=== PATIENT | female | born 1965 | race Caucasian/White ===

== ENCOUNTER 2016-12-27 22:15 | Emergency (ER) | payer BC, OTHER ==
[~2016-12-27] VITALS: Ht 167.6 cm; Wt 73.4 kg
[2016-12-27 22:25] VITALS: TEMP 36.8; Ht 167.6 cm; Wt 73.4 kg
--- NOTE | 2016-12-27 22:47 | EMERGENCY ROOM VISIT NOTE ---
History Report prepared by Lalita: Ac Morocho Under the Supervision of: Dr. Liam Daigle D.O. First contact with patient: 22:31 Chief Complaint: UNABLE TO VOID Stated Complaint: UNABLE TO URINATE Nursing Triage Summary: Patient states "I am unable to urinate. I have a vaginal bladder prolapse since today. Last time, I urinated was at 10 am this morning." History of Present Illness The patient is a 51 year old female who presents to the Emergency Room with inability to void, that began this morning. The patient has not urinated since early this morning, roughly 12 hours ago. She states that she has been diagnosed with a vaginal prolapse as is currently being evaluated for possible treatments. She is not complaining of any other symptoms at this time. She denies lower abdominal pain, back pain, or flank pain. 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 A total of ten systems were reviewed and were otherwise negative. Past Medical & Surgical Patient reports bowel obstruction, vaginal prolapse, and migraines Family History Pt reports family history of Hypertension and Cancer. Social History Smoking Status: Never Smoker Drug Use: none Marital Status: Housing Status: lives with family Occupation Status: employed Current/Historical Medications Scheduled Topiramate (Topamax), 50 MG PO HS Scheduled PRN Naratriptan Hcl (Amerge), 2.5 MG PO UD PRN for Migraine Allergies Coded Allergies: No Known Allergies (Unverified , 12/27/16) Physical Exam Vital Signs Date Time Temp Pulse Resp B/P (MAP) Pulse Ox O2 Delivery O2 Flow Rate FiO2 12/27/16 22:25 36.8 74 18 135/77 96 Room Air Physical Exam GENERAL: Awake, alert, well-appearing, in no distress HENT: Normocephalic, atraumatic. Oropharynx unremarkable. EYES: Normal conjunctiva. Sclera non-icteric. NECK: Supple. No nuchal rigidity. FROM. No JVD. RESPIRATORY: Clear to auscultation. CARDIAC: Regular rate, normal rhythm. Extremities warm and well perfused. Pulses equal. ABDOMEN: Soft, non-distended. No tenderness to palpation. No rebound or guarding. No masses. RECTAL: Deferred. MUSCULOSKELETAL: Chest examination reveals no tenderness. The back is symmetrical on inspection without obvious abnormality. There is no CVA tenderness to palpation. No joint edema. LOWER EXTREMITIES: Calves are equal size bilaterally and non-tender. No edema. No discoloration. NEURO: Normal sensorium. No sensory or motor deficits noted. SKIN: No rash or jaundice noted. : No significant bladder or vaginal prolapse. Medical Decision & Procedures Laboratory Results Test 12/27/16 23:15 Urine Color YELLOW Urine Appearance CLEAR (CLEAR) Urine pH 6.0 (4.5-7.5) Urine Specific [place] 1.017 (1.000-1.030) Urine Protein NEG (NEG) Urine Glucose (UA) NEG (NEG) Urine Ketones NEG (NEG) Urine Occult Blood NEG (NEG) Urine Nitrite NEG (NEG) Urine Bilirubin NEG (NEG) Urine Urobilinogen NEG (NEG) Urine Leukocyte Esterase NEG (NEG) Laboratory results reviewed by me ED Course 2238: The patient was evaluated in room B8. A complete history and physical exam was performed. 2303: I checked on the patient at this time. She was doing well. 2334: I reevaluated the patient. Discussed results and discharge instructions: she verbalized understanding and agreement. The patient is ready for discharge. Feels better, 750ml out, no infection Medical Decision Differential Diagnosis include; urinary retention, UTI, bladder prolapse. Medication Reconcilliation Current Medication List: was personally reviewed by me Blood Pressure Screening Patient's blood pressure: Elevated blood pressure Blood pressure disposition: Elevated BP felt to be situational Impression Primary Impression: Urinary retention Scribe Attestation The scribe's documentation has been prepared under my direction and personally reviewed by me in its entirety. I confirm that the note above accurately reflects all work, treatment, procedures, and medical decision making performed by me. Departure Information Dispostion Home / Self-Care Referrals Kesha Soto D.O. (PCP) Patient Instructions ED Retention Urinary Female, My [facility]
[2016-12-27] MEDS ORDERED: TOPI25TA10 PO (22:56)
[2016-12-27] MEDS ORDERED: NARA1TAB14 PO (22:56)
[2016-12-27 23:23] LABS: URINE APPEARANCE CLEAR (CLEAR); URINE BILIRUBIN NEG (NEG); URINE COLOR YELLOW; URINE NITRITE NEG (NEG); URINE SPECIFIC GRAVITY 1.017 (1.000-1.030); UROBILINOGEN NEG (NEG)
[2016-12-27 23:24] LABS: MANUAL MICROSCOPIC REQUIRED? NO; REVIEW REQ? NO
[2016-12-27 23:59] VITALS: BP 131/77; PULSE 65; O2SAT 98
== END 2016-12-28 | disposition home or self-care (01) ==
LOC: C.EDB 22:15
DX: R33.9 Retention of urine, unspecified (principal); Z82.49 Family history of ischemic heart disease and other diseases of the circulatory system; Z80.9 Family history of malignant neoplasm, unspecified; Z79.899 Other long term (current) drug therapy

== ENCOUNTER 2017-08-17 09:24 | Emergency (ER) | payer BC, OTHER ==
[~2017-08-17] VITALS: Ht 168.9 cm; Wt 75.3 kg
[~2017-08-17 09:24] MED LIST: NARA1TAB14 PO; TOPI25TA10 PO
[2017-08-17 09:30] VITALS: TEMP 36.8; Ht 168.9 cm; Wt 75.3 kg
[2017-08-17] MEDS ORDERED: MULT-920 (10:47)
[2017-08-17] MEDS ORDERED: RXC5 PO (10:47)
[2017-08-17] MEDS ORDERED: BISA-16 PO (10:47)
[2017-08-17] MEDS ORDERED: NAPR1TAB9 PO (10:47)
[2017-08-17 12:08] LABS: BASO % 0.3 %; BASO ABS # 0.03 K/uL (0-0.2); EOS % 3.3 %; HEMATOCRIT 35.4 % (37-47); IG# 0.04 K/uL (0.00-0.02); LYMPH % 27.6 %; LYMPH ABS # 2.47 K/uL (1.2-3.4); MEAN CELL VOLUME 87.2 fL (80-100); MEAN CORPUSCULAR HEMOGLOBIN 29.6 pg (25-34); MEAN CORPUSCULAR HGB CONC 33.9 g/dl (32-36); MEAN PLATELET VOLUME 10.8 fL (7.4-10.4); MONO % 6.7 %; NEUT % 61.7 %; NEUT ABS # 5.52 K/uL (1.4-6.5); PLATELET COUNT 354 K/uL (130-400); RED CELL DISTRIBUTION WIDTH SD 44.6 fL (36.4-46.3); WHITE BLOOD COUNT 8.96 K/uL (4.8-10.8)
[2017-08-17 12:24] LABS: CALCIUM 8.6 mg/dl (8.5-10.1); CREATININE 0.54 mg/dl (0.60-1.20)
[2017-08-17] MEDS ORDERED: CEFD300C2 PO (13:00)
--- NOTE | 2017-08-17 13:01 | EMERGENCY ROOM VISIT NOTE ---
History First contact with patient: 09:35 Chief Complaint: URINARY SYMPTOMS Stated Complaint: DISCOMFORT WITH URINATION Nursing Triage Summary: pt reports hysterectomy on 08/09 had cath removed 1 day ago and passed the urine challenge. pt reports feeling pressure around 0300 this AM took oxycodone and aleve with no relief . pt feels like not emptying bladder History of Present Illness The patient is a 51 year old female who presents to the Emergency Room with complaints of urinary retention and pelvic pressure. The patient recently had surgery completed at [facility] on August 09. She had a total vaginal hysterectomy, anterior colporrhaphy, perineorrhaphy, uterosacral ligament vault suspension performed by Dr. Oliver Brumfield. Patient states she initially failed her bladder challenge, and discharged home with a San catheter. She returned to [place] yesterday, where she did pass a bladder challenge, and the catheter was DC'd. The patient states she had been on Bactrim with the San catheter, however she had allergic reaction to the medication and this medication was discontinued on Wednesday. She states she felt well overnight, but at approximately 3 AM, she awoke with severe pain and incomplete emptying of her bladder. She states she is passing urine, but it is very weak stream. She states she is having to go very frequently, and only goes small amounts. She reports significant pressure sensation in her bladder. She denies any urethral or external pain with the passage of urine. She denies any dysuria or hematuria. She denies any recent fever. She states she is concerned that she may be retaining urine, and her surgeon recommended she come to the emergency department for possible replacement of a San catheter. The patient denies any specific abdominal pain or recent illness. She denies any diarrhea or constipation. Review of Systems A complete 10 point review of systems was reviewed with the patient with pertinent positives and negatives as per history of present illness. All else were negative. Past Medical/Surgical History Migraines Social History Smoking Status: Never Smoker Drug Use: none Marital Status: Housing Status: lives with family Occupation Status: employed Current/Historical Medications Scheduled Bisacodyl (Dulcolax), 2 TAB PO UD Cefdinir (Omnicef), 1 CAP PO BID Topiramate (Topamax), 50 MG PO DAILY Scheduled PRN Naratriptan Hcl (Amerge), 2.5 MG PO UD PRN for Migraine Miscellaneous Medications Multiple Vitamins W/ Minerals (Airborne) Naproxen (Aleve), 220 MG PO Oxycodone HCl (Oxycodone HCl), 1 TAB PO Allergies Bactrim Physical Exam Vital Signs Date Time Temp Pulse Resp B/P (MAP) Pulse Ox O2 Delivery O2 Flow Rate FiO2 08/17/17 13:09 79 17 120/66 96 08/17/17 13:04 79 17 120/66 96 Room Air 08/17/17 11:44 85 19 108/55 98 Room Air 08/17/17 09:30 36.8 87 20 131/76 97 Room Air Physical Exam VITALS: Vitals are noted on the nurse's note and reviewed by myself. Vital signs stable. GENERAL: This is a 51-year-old white female, in no acute distress, nondiaphoretic, well-developed well-nourished. SKIN: The skin was without rashes, erythema, edema, or bruising. There is no tenting of the skin. Capillary reflex less than 2 seconds. HEAD: Normocephalic atraumatic. EARS: External auditory canals clear, tympanic membranes pearly alanis without erythema or effusion bilaterally. EYES: Pupils equal round and reactive to light and accommodation. Conjunctivae without injection, sclerae without icterus. Extraocular movements intact. NOSE: Patent, turbinates without inflammation or discharge. No sinus tenderness. MOUTH: Mucous membranes moist. Tonsils are not enlarged. Pharynx without erythema or exudate. Uvula midline. Airway patent. Tongue does not deviate. NECK: Supple without nuchal rigidity. No lymphadenopathy. No thyromegaly. Cervical spine is nontender. No JVD. HEART: Regular rate and rhythm without murmurs gallops or rubs. LUNGS: Clear to auscultation bilaterally without wheezes, rales or rhonchi. No dullness to percussion. No retractions or accessory muscle use. ABDOMEN: Positive bowel sounds x 4. Normal tympanic percussion. Mild suprapubic tenderness. The abdomen was otherwise soft, nontender, without masses or organomegaly. Boyle sign negative. No guarding or rebound tenderness. MUSCULOSKELETAL: No muscle atrophy, erythema, or edema noted. Full range of motion without joint tenderness in all extremities. No tenderness to palpation. Normal gait. Strength 5/5 throughout. NEURO: Patient was alert and oriented to person place and time. Normal sensation to light and sharp touch. Deep tendon reflexes 2+ throughout. No focal neurological deficits. Medical Decision & Procedures Laboratory Results 08/17/17 11:53 Red Blood Count 4.06, Mean Corpuscular Volume 87.2, Mean Corpuscular Hemoglobin 29.6, Mean Corpuscular Hemoglobin Concent 33.9, Mean Platelet Volume 10.8, Neutrophils (%) (Auto) 61.7, Lymphocytes (%) (Auto) 27.6, Monocytes (%) (Auto) 6.7, Eosinophils (%) (Auto) 3.3, Basophils (%) (Auto) 0.3, Neutrophils # (Auto) 5.52, Lymphocytes # (Auto) 2.47, Monocytes # (Auto) 0.60, Eosinophils # (Auto) 0.30, Basophils # (Auto) 0.03 08/17/17 11:53 Test 08/17/17 10:27 08/17/17 11:53 Urine Color YELLOW Urine Appearance CLEAR (CLEAR) Urine pH 8.5 (4.5-7.5) Urine Specific [place] 1.010 (1.000-1.030) Urine Protein NEG (NEG) Urine Glucose (UA) NEG (NEG) Urine Ketones NEG (NEG) Urine Occult Blood TRACE (NEG) Urine Nitrite NEG (NEG) Urine Bilirubin NEG (NEG) Urine Urobilinogen NEG (NEG) Urine Leukocyte Esterase NEG (NEG) Urine WBC (Auto) 0 /hpf (0-5) Urine RBC (Auto) 5-10 /hpf (0-4) Urine Hyaline Casts (Auto) 0 /lpf (0-5) Urine Epithelial Cells (Auto) 0-5 /lpf (0-5) Urine Bacteria (Auto) NEG (NEG) White Blood Count 8.96 K/uL (4.8-10.8) Red Blood Count 4.06 M/uL (4.2-5.4) Hemoglobin 12.0 g/dL (12.0-16.0) Hematocrit 35.4 % (37-47) Mean Corpuscular Volume 87.2 fL (80-100) Mean Corpuscular Hemoglobin 29.6 pg (25-34) Mean Corpuscular Hemoglobin Concent 33.9 g/dl (32-36) Platelet Count 354 K/uL (130-400) Mean Platelet Volume 10.8 fL (7.4-10.4) Neutrophils (%) (Auto) 61.7 % Lymphocytes (%) (Auto) 27.6 % Monocytes (%) (Auto) 6.7 % Eosinophils (%) (Auto) 3.3 % Basophils (%) (Auto) 0.3 % Neutrophils # (Auto) 5.52 K/uL (1.4-6.5) Lymphocytes # (Auto) 2.47 K/uL (1.2-3.4) Monocytes # (Auto) 0.60 K/uL (0.11-0.59) Eosinophils # (Auto) 0.30 K/uL (0-0.5) Basophils # (Auto) 0.03 K/uL (0-0.2) RDW Standard Deviation 44.6 fL (36.4-46.3) RDW Coefficient of Variation 14.0 % (11.5-14.5) Immature Granulocyte % (Auto) 0.4 % Immature Granulocyte # (Auto) 0.04 K/uL (0.00-0.02) Anion Gap 6.0 mmol/L (3-11) Est Creatinine Clear Calc Drug Dose 129.2 ml/min Estimated GFR () 126.6 Estimated GFR (Non- 109.3 BUN/Creatinine Ratio 18.6 (10-20) Calcium Level 8.6 mg/dl (8.5-10.1) ED Course The patient was seen and evaluated as above. Bladder scan performed. San catheter placed to drain urine. Urinalysis performed and reviewed by myself. The patient did refuse lab work. I discussed the case with Lencho, nurse for Dr. Brumfield at [place]. She did recommend discharge with a San catheter and on antibiotics. I discussed proper antibiotic management with Hazel, ED pharmacist. She recommended Cefdinir 300 mg twice daily 7 days, but encouraged lab work to evaluate for normal kidney function. I discussed the importance of lab work with the patient at bedside. I discussed all findings with the patient at bedside. She did agree to lab work prior to discharge to verify normal kidney function for prescription of antibiotics. Labs reviewed by myself. Discharge instructions reviewed, the patient was discharged home in good condition. Medical Decision This is a 51-year-old female patient presents to the emergency department today ambulatory, complaining of significant pressure and suprapubic pain associated with urinary retention. The patient did recently have gynecological surgery as outlined previously, and was discharged home with a San catheter due to failing a bladder challenge. The patient did pass a bladder challenge yesterday and [place], and the catheter was removed. While here in the emergency department, the patient's initial bladder scan after the patient voided in the toilet showed 891 cc within the bladder. The patient's symptoms significantly improved with the insertion of a San catheter. Labs did not reveal any significant leukocytosis, anemia, thrombocytopenia. The patient's renal functions that showed a slightly low creatinine at 0.54. Patient's GFR was >100. Her urinalysis did show slight blood, but no signs of infection. I suspect that the patient's urinary retention is related to her recent surgery. I discussed the case with her surgeon's nurse, who did recommend insertion of a new San catheter. The patient was agreeable to this plan of care. She will be discharged home today with a San catheter, and was given proper outpatient management instructions. She will contact the surgeon's office repeat bladder challenge in 1 week. All questions were answered to the patient's satisfaction. She will be started on cefdinir 300 mg twice daily for UTI prophylaxis, at the surgeon's request for antibiotics. We will use cefdinir to increase coverage for gram negative organisms. Etiologies such as postop urine retention, renal colic, appendicitis, diverticulitis, mesenteric ischemia, aortic pathology, infections, inflammatory bowel disease, PUD, biliary pathology, UTI, as well as others were entertained. Medication Reconcilliation Current Medication List: was personally reviewed by me Blood Pressure Screening Patient's blood pressure: Normal blood pressure Impression Primary Impression: Postoperative urinary retention Departure Information Dispostion Home / Self-Care Condition GOOD Prescriptions Cefdinir (OMNICEF) 300 Mg Cap 1 CAP PO BID for 7 Days, #14 CAP Prov: Sara Love PA-C 08/17/17 Referrals Kesha Soto D.OJonas (PCP) Oliver Brumfield M.D. Patient Instructions ED Catheter Care San, ED Retention Urinary Female, My [facility] Additional Instructions You were seen in the emergency department today for urinary retention. A San catheter was placed. Please read and follow the San catheter care handout. You were prescribed cefdinir to be taken 300 mg twice daily. This is an antibiotic. All antibiotics have the potential to cause diarrhea. Stop this medication and contact a medical provider if you were to develop any significant adverse side effects including: wheezing, shortness of breath, passing out, vomiting, or a diffuse rash. Always take antibiotics as directed and COMPLETE the ENTIRE course regardless of the improvement of your symptoms. Please follow-up with your surgeon in [place] as directed. They did recommend follow-up in 1 week for reevaluation and repeat bladder challenge. Return to the emergency department for any significantly worsening symptoms or concerns.
[2017-08-17 13:09] VITALS: BP 120/66; PULSE 79; O2SAT 96
== END 2017-08-17 13:09 | disposition home or self-care (01) ==
LOC: C.EDB 09:28
DX: T81.89XA Other complications of procedures, not elsewhere classified, initial encounter (principal); R33.9 Retention of urine, unspecified; Y84.8 Other medical procedures as the cause of abnormal reaction of the patient, or of later complication, without mention of misadventure at the time of the procedure; N94.9 Unspecified condition associated with female genital organs and menstrual cycle; Z79.899 Other long term (current) drug therapy; Z88.8 Allergy status to other drugs, medicaments and biological substances